=== PATIENT | female | born 1935 | race Caucasian/White ===

== ENCOUNTER 2016-09-24 17:23 | Inpatient (IN) | payer MEDICARE, OTHER ==
[~2016-09-24] VITALS: Ht 167.6 cm; Wt 65.1 kg
--- NOTE | ~2016-09-24 | ECH ---
Transthoracic Echocardiography Report (TTE) Demographics Patient Name FAY ROY Date of Study 09/25/2016 Patient Number [id number] Visit Number [id number] Date of 1935 Room Number 404 Accession Number [id number] Gender Female Age 81 year(s) Referring Colleen Land Slot Shift Manager Patricia Willams Physician RDCS Physician Interpreting Esperanza Melchor MD Aws Consultant Physician Supervising Ordering Physician Colleen Land MD/MLP Nurse Stress Engineering Psychologist Conclusions Contractility Score Summary Normal Left Ventricular contractility was noted. Summary Technically good exam. Limited study for right ventricular pressures. The estimated left ventricular ejection fraction is 60%. Mild concentric left ventricular hypertrophy. The interventricular septum is mildly flattened which is consistent with right ventricular pressure / and or volume overload. Mild tricuspid regurgitation by color Doppler. There is moderate pulmonary hypertension. The pulmonary pressure (RVSP) is 51 mmHg. Large Pleural effusion present. Procedure Type of Study TTE procedure:Echo Complete SF. Procedure Date Date: 09/25/2016 Start: 01:32 PM Technical Quality: Good visualization Indications:Pulmonary embolus, Coronary artery disease and Hypertension. Additional Indications:s/p CABG Appropriate Use Criteria: 9 Height: 66 inches Weight: 163 pounds BSA: 1.83 m Rhythm: Irregular HR: 62 bpm BP: 157/72 mmHg Allergies - Penicillin. - Antibiotics:(Levaquin). M-Mode/2D Measurements LV Diastolic Dimension: 4.4 cm LV Systolic Dimension: 3.2 cm LV Septum Diastolic: 1.05 cm LV PW Diastolic: 1.05 cm AO Root Dimension: 3.34 cm LA Dimension: 3.58 cm RV Diastolic Dimension: 3.5 cm LA volume: 38.78 ml LA volume index: 21 ml/m RV Base: 3.1 cm RV Mid: 1.9 cm TAPSE: 1.7 cm Doppler Measurements TR Velocity:3.39 m/s TR Gradient:45.97 mmHg Estimated RAP:5 mmHg Estimated PASP: 50.97 mmHg Estimated RVSP: 51 mmHg RA Area: 10.76 cm Findings Left Ventricle The left ventricle is normal in size . Mild concentric left ventricular hypertrophy. The interventricular septum is mildly flattened which is consistent with right ventricular pressure / and or volume overload. Right Ventricle Normal right ventricle structure and function. Left Atrium Normal left atrial size. Right Atrium Normal right atrial size. Mitral Valve Mild mitral annular calcification. Aortic Valve The aortic valve is mildly sclerotic. Tricuspid Valve Normal tricuspid valve structure and function. Mild tricuspid regurgitation by color Doppler. There is moderate pulmonary hypertension. The pulmonary pressure (RVSP) is 51 mmHg. Pulmonic Valve The pulmonic valve is not well visualized. Pericardial Effusion No evidence of pericardial effusion. Miscellaneous Visualized portions of the aortic root and ascending aorta appear normal in size. Pleural Effusion Large Pleural effusion present. Contractility Score LV regional wall motion:(0-Non visualized 1-Normal 2-Hypokinesis 3-Akinesis 4-Dyskinesis 5-Aneurysm) Signature
--- NOTE | 2016-09-25 19:21 | ER ---
ADMIT: 09/24/2016 RM/LOC: 404 [facility] MR#: [id number] [address] [facility] [address] [place], [place] [address] FAY ROY Shilpa [address] [place] [address] Emergency Room Report SEX: F AGE: 81 : 1935 DATE: 09/24/2016 HISTORY OF PRESENT ILLNESS: The patient is an 81-year-old female with a past medical history of hypertension, coronary artery disease, who had double vessel bypass on in [place] and pending for the other two vessels to have the bypass surgery. The patient came to the ER with chief complaint of increased shortness of breath since yesterday. The patient states after the surgery, she had baseline shortness of breath and per chart and per the patient, she had left-sided pleural effusion, which was drained before, but the patient stated since yesterday, the shortness of breath increased suddenly. Per set staff fitter, the O2 saturation has always been in low 90s at room air, but since yesterday it became low 80s. The patient denied any chest pain. PHYSICAL EXAMINATION: VITAL SIGNS: The patient had O2 saturation of low 80s, which came to the 96% at 2.5 L of nasal cannula oxygen. The patient is not tachycardic. The patient is not tachypneic. The patient is not hypotensive. GENERAL: The patient is alert, oriented, and does not look to be in severe distress. The patient denies any pain except for the chronic pain in all the body, which she has had for some years. The patient also complains of some cough and white sputum, especially the last few days. The patient was afebrile in the ER, there were systolic murmur 2/6 grade. There were no extra sound in the heart. The patient had mild crackle in bilateral lower lungs, especially decreased breath sounds on the left lower lung. ABDOMEN: Soft and nontender and no guarding and no rebound. EXTREMITIES: There is no swelling of lower extremity and no tenderness in lower extremities. The patient had normal peripheral pulses. DIAGNOSTIC STUDIES: EKG did not show any acute ischemic changes or arrhythmia. Cardiac enzymes are negative. Chest x-ray was questionable for infiltration versus effusion of the left side. ASSESSMENT AND PLAN: Concerning the patient's condition and the past medical history, CT angiogram of the chest was done, which was suggestive of right pulmonary embolus. Internal Medicine was consulted and the patient was admitted for pulmonary emboli, hypoxia, history of coronary artery disease, left-sided pleural effusion. Omi Barnett MD/ luke JOB #: [id number] CC: Gloria Macias MD, Attending Physician Gloria Macias MD, Family Physician
--- NOTE | 2016-09-30 23:12 | HP ---
ADMIT: 09/24/2016 RM/LOC: 404 [facility] MR#: [id number] [address] [facility] [address] [place], [place] [address] FAY ROY [address] [place] [address] History and Physical SEX: F AGE: 81 : 1935 DATE OF SERVICE: CHIEF COMPLAINT: Shortness of breath with hypoxemia. HISTORY OF PRESENT ILLNESS: Fay is an 81-year-old, white female, who presented to [facility] after having undergone a 2-vessel minimally invasive CABG on 09/03/2016. She had a rather prolonged hospitalization that was complicated by a left-sided pleural effusion, which required a thoracentesis as well as some general malaise and significant nausea and vomiting. She apparently had extensive evaluation by Gastroenterology and no etiology was found. She actually returned to [facility] [place] for rehab on approximately 09/19/2016 with an NG present. Shortly after her arrival, she requested that the NG tube be removed as she felt she was eating fine. She was also placed on Remeron in [place] and requested that this be discontinued also as she did not feel it was necessary. This is pretty normal for Fay and that she does not like to take medications. As a matter of fact, she is known for micromanaging her care and stopping and starting medications. Of note, since the of her , Dragan, a few years ago, she has been a little bit better about trying to take the medications. Regardless, she had been having some progressive problems with shortness of breath. She had received notification from [facility] that she had also been a little more short of breath. Over the weekend in particular, she had some hypoxemia develop, and [facility] had called over on the afternoon of 09/24/2016. Chest x-ray showed a large pleural effusion verbally. The family mentioned that when she was at [facility], she had a left thoracentesis and requested that she have one performed. Orders were faxed at 3:30 in the afternoon and toward the end of the workday, family wanted her to be seen that night and to have the thoracentesis performed in the emergency room. I did not get this message related to me as I had left for the hospital. The family are she was transported to the emergency room and was evaluated. The emergency room doctor appropriately listened to what had happened and noted that her saturation level had been down into the 80% from the 90% range. A CT angiogram was performed and showed bilateral pulmonary emboli. She is admitted at this time for treatment. PAST MEDICAL HISTORY: Unchanged from her admission in August prior to her going to [place] with the exception of her 2-vessel noninvasive CABG and subsequent complications. I do not have the complete record so a lot of this information is not available to me. MEDICATIONS: Per Nelia Hughes, but include: 1. Tylenol 325, 2 q.4 p.r.n. 2. Aspirin 81 mg daily. 3. Dulcolax suppository 10 mg daily p.r.n. 4. Catapres patch 0.2 every week. 5. Lasix 20 mg daily, which was just started on 09/21/2016 due to complaints of edema. 6. Lopressor 25 mg b.i.d. 7. Remeron 15 mg at bedtime. ADMIT: 09/24/2016 RM/LOC: 404 [facility] MR#: [id number] [address] [place] [id number] FAY ROY [address] [place] [address] History and Physical SEX: F AGE: 81 : 1935 8. Protonix 40 mg daily. 9. Chloraseptic spray p.r.n. 10.Zoloft 50 mg daily. 11.[place] nasal spray. 12.Tramadol 50 mg, 1/2 tablet every 6 hours as needed for pain. Allergies, social and family history all unchanged from her previous admission. REVIEW OF SYSTEMS: Short of breath. Just does not feel well. PHYSICAL EXAMINATION: VITAL SIGNS: Per ER. GENERAL: This is a well-developed, well-nourished, pale elderly female, who appears to be uncomfortable. SKIN: Without rashes.. HEENT: Normocephalic. Mucous membranes are dry. NECK: Supple. LUNGS: Diminished with crackles in the bases. CARDIOVASCULAR: Distant with a 2/6 murmur. ABDOMEN: Soft. GENITOURINARY AND RECTAL: Deferred. EXTREMITIES: With 1+ edema. IMPRESSION: 1. Bilateral pulmonary emboli. 2. Hypoxemia. 3. Left pleural effusion versus consolidation. 4. Coronary artery disease status post recent minimally invasive CABG. 5. Hypertension. DISCUSSION: Admit for IV heparin. We will hold off on the tap of her lungs since that would require her to have her anticoagulation discontinued and that is not acceptable. PLAN: See chart. Gloria Macias MD/ luke JOB #: [id number] CC: Gloria Macias, Attending Physician Gloria Macias, Family Physician . [facility]
--- NOTE | 2016-10-03 15:27 | CO ---
ADMIT: 09/24/2016 RM/LOC: 404 [facility] MR#: [id number] [address] [facility] [address] [place] [phone] FAY ROY [address] [place] [address] Consultation SEX: F AGE: 81 : 1935 DATE OF CONSULTATION: 09/26/2016 ATTENDING PHYSICIAN: Gloria Macias CONSULTING PHYSICIAN: Trace Pond MD REASON FOR CONSULTATION: Recent bypass surgery, possibly need for further coronary stent. HISTORY OF PRESENT ILLNESS: The patient is a pleasant 81-year-old, female, who has a known history of coronary artery disease, status post stenting in 2002. She then presented to [facility] at the end of August with unstable angina. She had a diagnostic left heart catheterization that showed three-vessel coronary artery disease and was transferred to [facility] for possible bypass surgery. On the , she did undergo coronary artery bypass x2 with a KLINE to the LAD and a vein graft from the aorta to the diagonal done via MICS, CABG, left thoracotomy. She did, upon dismissal, have requirement to come back in 4-6 weeks for stenting of her RCA. She did have a prolonged recovery course and was not dismissed until the 19 of September. She had a left pleural effusion and did have a thoracentesis on the . She also had abdominal pain, nausea, and vomiting and ended up undergoing an EGD at [facility] during that hospital stay. She also had an NG tube placement for a while. After being dismissed on the , she was sent to [facility]. Unfortunately, on Saturday, she began to have shortness of breath. This worsened on Saturday, and on Saturday, she was actually hypoxic and requiring oxygen supplementation which was new for her. Because of this, she was sent to the emergency room for further evaluation. In the emergency room, she had a CTA of her chest which showed bilateral pulmonary emboli, more extensive on the right, with a large left pleural effusion. She has been started appropriately on a heparin drip. Her bilateral venous Doppler's were negative. She had an echocardiogram to follow up on her right heart, which showed an EF of 60%, interventricular septum mildly flattened consistent with right ventricular pressure and volume overload, mild tricuspid regurgitation with a pulmonary pressure of 51 mmHg. She has not had any angina. MEDICATIONS: She is currently taking include: 1. Aspirin 81 mg p.o. daily. 2. Catapres 0.1 mg p.o. b.i.d. 3. Lasix 20 mg p.o. daily. 4. Lopressor 25 mg p.o. b.i.d. 5. MiraLax 17 g p.o. daily. 6. Protonix 40 mg p.o. b.i.d. 7. Remeron 15 mg p.o. at bedtime. 8. Zoloft 50 mg a day. 9. Proventil. 10.Heparin drip. 11.Zithromax. ADMIT: 09/24/2016 RM/LOC: 404 [facility] MR#: [id number] [address] [place] [id number] FAY ROY [address] [place] [address] Consultation SEX: F AGE: 81 : 1935 ALLERGIES: PENICILLIN AND QUINOLONES. FAMILY HISTORY: Noncontributory. SOCIAL HISTORY: Right now, she is recovering at [facility]. Her daughter is here in the room with her. REVIEW OF SYSTEMS: 10-point review of systems reviewed and negative except as per HPI. LABORATORY AND X-RAY DATA: See HPI for venous Doppler CT and echocardiogram report. White blood count of 7.5 with a red blood count 2.95, hemoglobin 9.2, hematocrit 28.0 with a platelet count of 414. Sodium of 138 with a potassium of 3.8, chloride of 102, carbon dioxide 28, BUN of 13, glucose 107, creatinine 0.8. AST and ALT were normal. Chest x-ray shows pleural effusion. ASSESSMENT AND PLAN: Per Dr. Pond: 1. Unstable angina, status post recent coronary artery bypass graft. 2. Coronary artery disease, status post hybrid KLINE to the LAD and vein graft to the diagonal. She does have a plan for staged PCI at a later date. I would likely delay this at least 3 months on anticoagulation because of her new diagnosis of PE's, and she is not having any significant anginal symptoms at this time. 3. Bilateral pulmonary embolisms per primary. 4. Left pleural effusion. 5. If we do not have any decrease in her left pleural effusion, I would consider thoracentesis while still on her heparin drip. 6. Hypertension. 7. Pulmonary hypertension worsened by PE's. We will continue to monitor her symptoms and diagnostics and amend our plan accordingly. Thank you for allowing us to participate in the care of this patient. JAMSHID Paez / Trace Pond MD / luke JOB #: [id number] CC: Gloria Macias, Attending Physician Gloria Macias, Family Physician
[2016-10-04] MEDS ORDERED: MIRALAX PACKET17 GM PO (14:09)
[2016-10-04] MEDS ORDERED: ASA CHILDREN'S81 MG PO (14:09)
[2016-10-04] MEDS ORDERED: METOPROLOL TART25 MG PO (14:09)
[2016-10-04] MEDS ORDERED: PROTONIX40 MG PO (14:09)
[2016-10-04] MEDS ORDERED: XARELTO15 MG PO (14:10)
[2016-10-04] MEDS ORDERED: ZOLOFT DPS50 MG PO (14:10)
[2016-10-04] MEDS ORDERED: ZESTRIL DPS10 MG PO (14:10)
[2016-10-04] MEDS ORDERED: PROVENTIL2.5 MG/3 M PO (14:11)
[2016-10-04] MEDS ORDERED: ZOVIRAX5 GM TP (14:11)
[2016-10-04] MEDS ORDERED: MYLICON DPS80 MG PO (14:12)
[2016-10-04] MEDS ORDERED: LASIX DPS20 MG PO (14:12)
[2016-10-04] MEDS ORDERED: TYLENOL DPS325 MG PO (14:12)
[2016-10-04] MEDS ORDERED: ULTRAM DPS50 MG PO (14:13)
[2016-10-04] MEDS ORDERED: OCEAN NASAL MIS45 ML NS (14:13)
[2016-10-04] MEDS ORDERED: CEFTIN DPS500 MG PO (14:14)
--- NOTE | 2016-10-29 01:12 | DS ---
ADMIT: 09/24/2016 RM/LOC: 404 [facility] MR#: [id number] 26[address] [facility] [address] [place], [place] [address] MANUELAKWASI Dos SantosSYDNI Massey [address] [place], [place] [address] Discharge Summary SEX: F AGE: 81 : 1935 ADMISSION DATE: 09/24/2016 DISCHARGE DATE: 10/03/2016 DIAGNOSES: 1. Bilateral pulmonary embolism. 2. Coronary artery disease status post recent CABG (coronary artery bypass graft). 3. Left pleural effusion. 4. Hypertension. 5. Gastroesophageal reflux disease. 6. Hypokalemia. 7. Nausea. 8. Anxiety/depression. 9. Pulmonary hypertension with RVSP (right ventricular systolic pressure) of 51. 10.Pulmonary consolidation. 11.Hypoxemia. 12.Edema. 13.Herpes labialis. 14.Anemic due to ABL (acute blood loss). 15.Weakness. PROCEDURE: 1. CTA of the chest 09/24/2016. 2. Venous Doppler bilateral lower extremity 09/25/2016. 3. Echo 09/24/2016. 4. PRBC x1. 5. Thoracentesis left 10/01/2016. CONSULTS: SHAKIR and Interventional Radiology. REASON FOR HOSPITALIZATION: Bilateral PE with hypoxemia. See dictated H and P. LABORATORY AND X-RAY DATA: Echocardiogram 09/25/2016 with EF 60%, mild LVH, and the interventricular septum was mildly flattened consistent with right ventricular pressure and/or volume overload. Moderate pulmonary hypertension was noted with RVSP of 51. Sodium 137, potassium 3.8, chloride 102, CO2 28, BUN 13, creatinine 0.7, sugar variable, see chart. Calcium 8.2, total bilirubin 0.4, total protein 6.7, albumin 2.3, alkaline phosphatase 101, AST 15, ALT 25, magnesium 2.4, troponin early on was 0.025. PTT variable-see chart. White count down to 4.9, hemoglobin on admission was 8.7 down to 7.7, with final value of 10.5, platelet count 309, lactic acid 1.2. Influenza A and B were negative. Thoracentesis and blood cultures were negative. Chest x- ray showed opacified left lower lobe when she was first admitted. CTA of the chest with bilateral pulmonary emboli more extensive on the right with a large left pleural effusion. Bilateral venous Dopplers were negative. Follow-up chest x-rays with most recent 09/30/2016 showed increased left-sided pleural effusion and left lower lobe pneumonia. She underwent a thoracentesis of 1000 ADMIT: 09/24/2016 RM/LOC: 404 [facility] MR#: [id number] [address] [address] FAY ROY [address] [place] [address] Discharge Summary SEX: F AGE: 81 : 1935 mL of fluid which was unremarkable. Follow-up chest x-ray on the day prior to discharge showed interval left-sided thoracentesis with markedly decreased pleural fluid on the left as well as atelectatic changes. COURSE IN HOSPITAL: Fay was admitted with bilateral pulmonary emboli through the emergency room. She was placed on oxygen and immediately heparinized. Venous Dopplers were ordered. Study was negative. Many of her other home medications were continued. Due to the consolidation noted on her scans, her Zithromax was continued but it was in an IV form. Echocardiogram was done to check right ventricular pressures which were slightly elevated. Nebulizers were given. Activity was gradually increased. She was noted to have a little bit more fluid so Lasix was given intravenously. She did have a pretty good response. Tried to get things to improve without doing an intervention because we had to put her on heparin and I hated to interrupt her anticoagulation. Incentive spirometry was given. I did have Cardiology come by just to look over things and get the plan of care as there was a question of having a lesion on the back side of her heart that would need intervention at some point. They did come by and mentioned that she needed a staged procedure and it would be delayed a little bit. Then came the issue of her polypharmacy. She does not want to take all these medications and was hoping to get things narrowed down. We did go ahead and change the clonidine from a patch form to a pill, and she really felt very tired and had a very dry mouth after she would take it. This was subsequently discontinued and the reinstitution of her GUERO inhibitor which she tolerated well. Unfortunately, despite the Lasix and the management of medications, she had progressive fluid in her left lung so she underwent a thoracentesis with Interventional Radiology on 10/01/2016. 1000 mL of fluid was removed. Sent for culture and was negative. After that, she had much improvement in her oxygen status. Activity was increased. She had persistence of her abdominal gas. Simethicone was given. She did feel a little bit stronger but not quite ready for dismissal to home. The plan now is to go to [facility] for strengthening and hopefully tapering of her oxygen. We will keep an eye on the fluid in her left lung and also Cardiology will deal with her staged procedure that needs to be performed. DISCHARGE INSTRUCTIONS: 1. Discharge instructions include going to [facility]. 2. She will keep her oxygen as per PCP and then taper as an outpatient. 3. Aspirin 81 mg daily. 4. Lopressor 25 b.i.d. 5. MiraLAX p.r.n. 6. Protonix decreased to 40 mg daily. 7. Xarelto 15 mg b.i.d. for 12 days, then 20 mg daily. 8. Zestril 10 mg daily. 9. Zoloft daily 50 mg. 10.Proventil MDI q.i.d. p.r.n. 11.Acyclovir q.i.d. ointment until healed on her lip then p.r.n. ADMIT: 09/24/2016 RM/LOC: 404 [facility] MR#: [id number] [address] [facility] [address] [place] [phone] FAY ROY [address] [place], [place] [address] Discharge Summary SEX: F AGE: 81 : 1935 12.Lasix 20 mg p.o. daily. 13.Ceftin 250 b.i.d. for 5 days. 14.Vitamin with iron daily. 15.Mylicon 80 mg q.4h p.r.n. 16.Tylenol 650 q.4h p.r.n. 17.Tramadol 50 mg 1/2 to 1 q.6h p.r.n. 18.[place]. 19.On 10/15/2016 she will have a chest x-ray for follow up of her effusion on the left. She will also have lab on 10/11/2016 including a CBC and a BMP. 20.She will see me in 2-3 weeks. Overall prognosis is fair. Time spent is 50 minutes. Gloria Macias MD/ yrn JOB #: [id number] CC: Gloria Macias MD, Attending Physician Gloria Macias MD, Family Physician
== END 2016-10-03 13:00 | DRG 175 ==
LOC: ER 17:23 → 4PCU 20:05
PROVIDERS: ADMIT Internal Medicine
PROC: 30233N1 Transfusion of Nonautologous Red Blood Cells into Peripheral Vein, Percutaneous Approach (ICD-10-PCS; principal; 2016-09-28)
PROC: 0W9B3ZX Drainage of Left Pleural Cavity, Percutaneous Approach, Diagnostic (ICD-10-PCS; 2016-10-01)
DX: I26.99 Other pulmonary embolism without acute cor pulmonale (principal); J18.9 Pneumonia, unspecified organism; I27.2 Other secondary pulmonary hypertension; J91.8 Pleural effusion in other conditions classified elsewhere; D62 Acute posthemorrhagic anemia; I36.1 Nonrheumatic tricuspid (valve) insufficiency; D86.9 Sarcoidosis, unspecified; N28.1 Cyst of kidney, acquired; I25.110 Atherosclerotic heart disease of native coronary artery with unstable angina pectoris; M48.02 Spinal stenosis, cervical region; G89.29 Other chronic pain; I10 Essential (primary) hypertension; R09.02 Hypoxemia; E87.6 Hypokalemia; F32.9 Major depressive disorder, single episode, unspecified; B00.1 Herpesviral vesicular dermatitis; F41.9 Anxiety disorder, unspecified; E55.9 Vitamin D deficiency, unspecified; K21.9 Gastro-esophageal reflux disease without esophagitis; K44.9 Diaphragmatic hernia without obstruction or gangrene; E78.2 Mixed hyperlipidemia; K80.20 Calculus of gallbladder without cholecystitis without obstruction; K57.30 Diverticulosis of large intestine without perforation or abscess without bleeding; Z79.82 Long term (current) use of aspirin; Z95.1 Presence of aortocoronary bypass graft; Z95.5 Presence of coronary angioplasty implant and graft; Z66 Do not resuscitate

== ENCOUNTER → 2016-10-11 | Outpatient (CLI) | payer MEDICARE, OTHER ==
[~2016-10-11] MED LIST: ASA CHILDREN'S81 MG PO; CEFTIN DPS500 MG PO; LASIX DPS20 MG PO; METOPROLOL TART25 MG PO; MIRALAX PACKET17 GM PO; MYLICON DPS80 MG PO; OCEAN NASAL MIS45 ML NS; PROTONIX40 MG PO; PROVENTIL2.5 MG/3 M PO; TYLENOL DPS325 MG PO; ULTRAM DPS50 MG PO; XARELTO15 MG PO; ZESTRIL DPS10 MG PO; ZOLOFT DPS50 MG PO; ZOVIRAX5 GM TP
== END | disposition home or self-care (01) ==
LOC: RAD.S 08:19
DX: J90 Pleural effusion, not elsewhere classified (principal); I26.99 Other pulmonary embolism without acute cor pulmonale

== ENCOUNTER → 2016-11-16 | Outpatient (CLI) | payer MEDICARE, OTHER, MEDICAID | END | disposition home or self-care (01) | LOC: RAD.S 11:00 | PROC: 0W9B3ZZ Drainage of Left Pleural Cavity, Percutaneous Approach (ICD-10-PCS; principal; 2016-11-16) | DX: J90 Pleural effusion, not elsewhere classified (principal) ==

== ENCOUNTER → 2016-12-17 | Outpatient (CLI) | payer MEDICARE | END | disposition home or self-care (01) | LOC: RAD.S 09:36 | DX: J90 Pleural effusion, not elsewhere classified (principal); Z98.890 Other specified postprocedural states ==

== ENCOUNTER → 2016-12-25 | Outpatient (CLI) | payer MEDICARE, OTHER, MEDICAID | END | disposition home or self-care (01) | LOC: PTH.S 12-24 15:00 | DX: R19.7 Diarrhea, unspecified (principal) ==